=== PATIENT | male | born 1955 | race Caucasian/White ===

== ENCOUNTER 2022-03-18 16:16 | Outpatient (CLI) | payer OTHER | END 2022-03-18 16:17 | disposition home or self-care (01) | LOC: CSHRAD 16:16 | PROVIDERS: ATTEND Otolaryngology Otolaryngic Allergy | DX: R05.9 Cough, unspecified (principal); J84.9 Interstitial pulmonary disease, unspecified | CPT/HCPCS: 71046 ==